=== PATIENT | female | born 1995 | race African-American/Black ===

== ENCOUNTER 2016-08-17 20:39 | Emergency (ER) | payer OTHER ==
[2016-08-17 19:43] LABS: INFLUENZA A NEG (NEG); INFLUENZA B NEG (NEG)
[2016-08-17 20:23] LABS: URINE SOURCE CLEAN CATCH
[2016-08-17 20:28] LABS: URINE APPEARANCE CLEAR; URINE BILIRUBIN NEG (NEG); URINE BLOOD NEG (NEG); URINE COLOR YELLOW; URINE GLUCOSE NEG (NEG); URINE KETONE TRACE (NEG); URINE LEUKOCYTE ESTERASE NEG (NEG); URINE NITRATE NEG (NEG); URINE PROTEIN NEG (NEG); URINE SPECIFIC GRAVITY 1.032 (1.003-1.035)
[2016-08-17 20:38] LABS: CULTURE INDICATED? NO
[~2016-08-17 20:39] MED LIST: PRENATAL VITAMI1 TA4 PO
== END 2016-08-17 21:14 | disposition home or self-care (01) ==
LOC: CFTX 20:39
PROVIDERS: Emergency Medicine; Nurse Practitioner
DX: J06.9 Acute upper respiratory infection, unspecified (principal); F32.9 Major depressive disorder, single episode, unspecified; J45.909 Unspecified asthma, uncomplicated; F17.200 Nicotine dependence, unspecified, uncomplicated
CPT/HCPCS: 81003; 84703; 87804; 99283